=== PATIENT | female | born 1965 | race Caucasian/White ===

== ENCOUNTER 2017-06-09 06:35 | Emergency (ER) | payer MEDICAID ==
[~2017-06-09] VITALS: Ht 152.4 cm; Wt 57.5 kg
[~2017-06-09 06:35] MED LIST: ALBU0.08 NEB; ALBUAER3 INH; BUTA1CAP PO; CLON0.1T PO; CYCL1TAB29 PO; DILT120T PO; DULO-39 PO; GABA600T PO; IBUP800T23 PO; MONT10TA2 PO
[2017-06-09] MEDS ORDERED: SODIUM CHLORIDE 0.9% FLUSH 10 ML FLUSH IVF PRN (06:45)
[2017-06-09] MEDS ORDERED: methylPREDNISolone SOD SUCC 125 MG/2 ML VIAL IVP ONE (06:45)
--- NOTE | 2017-06-09 06:45 | PD ---
HPI Chief Complaint: shortness of breath Time Seen by Provider: 06:40 Travel History International Travel<30 days: No Contact w/Intl Traveler<30days: No Traveled to known affect area: No History of Present Illness HPI 51-year-old female presents to the emergency department by private transportation for complaint of 4 hours of progressively worsening shortness of breath. Patient has history of COPD and uses supplemental oxygen. Patient is out of medications. In has not recently been on steroid. Patient does not have productive cough for complaint of fever. Patient is a cigarette smoker. Patient reports she took none of her medications prior to arrival to the ED. PFSH Past Medical History Narrative Medical Sciatica Asthma COPD depression hypertension tobaccoism hysterectomy; nursing notes reviewed Asthma: Yes Anxiety: No Depression: Yes Cancer: No Cardiovascular Problems: Yes (HTN) COPD: Yes Diabetes: No Diminished Hearing: No Endocrine: No Genitourinary: No Hypertension: Yes Immune Disorder: No Musculoskeletal: Yes (SCIATICA) Neurologic: No Psychiatric: No Reproductive: No Respiratory: Yes (COPD; ASTHMA) Immunizations Current: No : 11 Para: 1 Tubal Ligation: Yes Past Surgical History Section: Yes Cholecystectomy: Yes Gynecologic Surgery: Yes (, HYSTERECTOMY) Hysterectomy: Yes Other Surgery: Yes Social History Alcohol Use: No Tobacco Use: Yes (1.5 PPD) Substance Use: No Allergies-Medications (Allergen,Severity, Reaction): Coded Allergies: Aspirin (Verified Allergy, Severe, Shortness of Breath, 06/09/17) Reported Meds & Prescriptions Reported Meds & Active Scripts Active Proair Hfa 8.5 GM Inh (Albuterol Sulfate) 90 Mcg/Act Aer 2 Puff INH Q6H PRN 108 mcg/actuation Albuterol Neb (Albuterol Sulfate) 2.5 Mg/3 Ml Neb 2.5 Mg NEB Q4HR NEB PRN Duloxetine DR (Duloxetine HCl) 40 Mg Capdr 40 Mg PO DAILY Gabapentin 600 Mg Tab 600 Mg PO TID Ibuprofen 800 Mg Tab 800 Mg PO Q6HR PRN Clonidine (Clonidine HCl) 0.1 Mg Tab 0.1 Mg PO DAILY Singulair (Montelukast Sodium) 10 Mg Tab 10 Mg PO DAILY Flexeril (Cyclobenzaprine HCl) 10 Mg Tab 10 Mg PO Q8HR PRN Fioricet (Mpzhgenyyq-Dyhjqedrqlqbw-Hmcvdigc) 50-300-40 Mg Cap 1 Cap PO Q4H PRN Reported Diltiazem (Diltiazem HCl) 120 Mg Tab 120 Mg PO BID Review of Systems Except as stated in HPI: all other systems reviewed are Neg Physical Exam Narrative GENERAL: Well-developed well-nourished female in obvious respiratory distress speaking 1 word or short phrase sentences. SKIN: Warm and dry. HEAD: Normocephalic. EYES: No scleral icterus. No injection or drainage. NECK: Supple, trachea midline. No JVD or lymphadenopathy. CARDIOVASCULAR: Increased Regular rate and rhythm without murmurs, gallops, or rubs. RESPIRATORY: Breath sounds equal bilaterally diminished with diffuse expiratory wheeze. No accessory muscle use. GASTROINTESTINAL: Abdomen soft, non-tender, nondistended. MUSCULOSKELETAL: No cyanosis, or edema. BACK: Nontender without obvious deformity. No CVA tenderness. Data Data Last Documented VS Vital Signs Date Time Temp Pulse Resp B/P Pulse Ox O2 Delivery O2 Flow Rate FiO2 06/09/17 06:47 98.3 100 20 238/134 93 Orders Complete Blood Count With Diff (06/09/17 06:37) Basic Metabolic Panel (Bmp) (06/09/17 06:37) B-Type Natriuretic Peptide (06/09/17 06:37) Magnesium (Mg) (06/09/17 06:37) Troponin I (06/09/17 06:37) Iv Access Insert/Monitor (06/09/17 06:37) Electrocardiogram (06/09/17 06:37) Ecg Monitoring (06/09/17 06:37) Oximetry (06/09/17 06:37) Oxygen Administration (06/09/17 06:37) Chest, Single Ap (06/09/17 06:37) Sodium Chloride 0.9% Flush (Ns Flush) (06/09/17 06:45) Methylprednisolone So Succ Inj (Solumedr (06/09/17 06:45) Albuterol-Ipratropium Neb (Duoneb Neb) (06/09/17 06:45) Clonidine (Catapres) (06/09/17 07:00) MDM Medical Decision Making Medical Screen Exam Complete: Yes Emergency Medical Condition: Yes Medical Record Reviewed: Yes Interpretation(s) cxr: hyperinflation c/w copd; no lobar infiltrate, no cardiomegaly, no pneumothorax Differential Diagnosis Exacerbation COPD, bronchitis, pneumonia, ACS, CHF, accelerated hypertension, PE Narrative Course 51-year-old female presents with exacerbation of COPD with tight diffuse expiratory wheezing and diminished breath sounds; [facility] 3 Solu-Medrol 125 mg administered IV times one dose chest x-ray EKG and blood work ordered patient maintained on supplemental oxygen. Care signed over to onccat CUELLO, Dr. Garza, for follow up of CT and disposition Diagnosis Primary Impression: COPD exacerbation Additional Impression: HTN (hypertension) Admitting Information Admitting Physician Requests: Admit Ysabel Aamnda MD Jun 09, 2017 06:45 Ysabel Amanda MD Jun 09, 2017 06:45
[2017-06-09] MEDS: RESP: ALBUTEROL 2.5 MG/IPRATROPIUM 0.5 MG NEB (SCH) INH ×2 (06:46→06:47)
[2017-06-09 06:47] VITALS: BP 238/134; PULSE 100; RESP 20; TEMP 98.3; O2SAT 93
--- NOTE | 2017-06-09 06:52 | RADRPT ---
EXAM DATE/TIME: 06/09/2017 06:46 [facility] COMPARISON: CHEST SINGLE AP, July 19, 2016, 11:47. INDICATIONS : Shortness of breath MEDICAL HISTORY : Hypertension. Chronic obstructive pulmonary disease. SURGICAL HISTORY : None. ENCOUNTER: Initial ACUITY: 1 day PAIN SCORE: 0/10 LOCATION: Bilateral chest FINDINGS: Single AP view of the chest. The lungs are clear. Cardiomediastinal silhouette within normal limits. No evidence of pleural effusion or pneumothorax. CONCLUSION: No acute cardiopulmonary disease identified. Aj Miller MD on June 09, 2017 at 6:50 Board Certified Radiologist. This report was verified electronically.
[2017-06-09] MEDS ORDERED: cloNIDine HCL 0.2 MG TAB PO ONE (07:00)
[2017-06-09 07:09] VITALS: BP 185/104; PULSE 90; RESP 20; O2SAT 97
[2017-06-09 07:12] LABS: CHLORIDE 106 MEQ/L (98-107); POTASSIUM 4.1 MEQ/L (3.5-5.1); SODIUM (NA) 140 MEQ/L (136-145)
[2017-06-09 07:15] LABS: ANION GAP 6 MEQ/L (5-15); BICARBONATE 28.1 MEQ/L (21.0-32.0); BLOOD UREA NITROGEN 14 MG/DL (7-18)
[2017-06-09 07:17] LABS: AUTOMATED NEUTROPHIL # 5.8 TH/MM3 (1.8-7.7); BASOPHIL # 0.1 TH/MM3 (0-0.2); BASOPHIL % 0.6 % (0.0-2.0); EOSINOPHIL # 0.3 TH/MM3 (0-0.4); EOSINOPHIL % 2.6 % (0.0-4.0); HEMATOCRIT 50.1 % (35.0-46.0); HEMO FLAGS DIFF FINAL; MEAN CELL VOLUME 89.2 FL (80.0-100.0); MEAN CORPUSCULAR HEMOGLOBIN 29.4 PG (27.0-34.0); MONO % 6.9 % (0.0-8.0); NEUT % 59.9 % (16.0-70.0); PLATELET COUNT 311 TH/MM3 (150-450); RED BLOOD COUNT 5.62 MIL/MM3 (4.00-5.30); RED CELL DISTRIBUTION WIDTH 13.2 % (11.6-17.2); WHITE BLOOD COUNT 9.9 TH/MM3 (4.0-11.0)
[2017-06-09 07:18] LABS: GLOMERULAR FILTRATION RATE 76 ML/MIN (>89)
[2017-06-09 07:35] VITALS: BP 144/89; PULSE 88; RESP 18; O2SAT 99
--- NOTE | 2017-06-09 07:51 | EKG ---
Date Performed: 06/09/2017 Time Performed: 07:16:09 PTAGE: 51 years EKG: Sinus rhythm WITH SINUS ARRHYTHMIA NONSPECIFIC T-WAVE ABNORMALITY BORDERLINE ECG Compared to prior electrocardiog jeyson, Rate has slowed and T-wave changes are present. PREVIOUS TRACING : 01/04/2016 03.54 DOCTOR: Jesus Ang Interpretating Date/Time 06/09/2017 07:50:19
[2017-06-09 08:19] VITALS: BP 116/91; PULSE 90; RESP 18; O2SAT 96
[2017-06-09] MEDS ORDERED: ALBU0.08 NEB (08:32)
[2017-06-09] MEDS ORDERED: IPRA0.02 NEB (08:32)
[2017-06-09] MEDS ORDERED: ALBUAER3 INH (08:32)
[2017-06-09] MEDS ORDERED: PRED50 PO (08:32)
--- NOTE | 2017-06-09 08:33 | PD ---
Data Data Last Documented VS Vital Signs Date Time Temp Pulse Resp B/P Pulse Ox O2 Delivery O2 Flow Rate FiO2 06/09/17 08:19 90 18 116/91 96 Room Air 06/09/17 07:09 2 06/09/17 06:47 98.3 Orders Complete Blood Count With Diff (06/09/17 06:37) Basic Metabolic Panel (Bmp) (06/09/17 06:37) B-Type Natriuretic Peptide (06/09/17 06:37) Magnesium (Mg) (06/09/17 06:37) Troponin I (06/09/17 06:37) Iv Access Insert/Monitor (06/09/17 06:37) Electrocardiogram (06/09/17 06:37) Ecg Monitoring (06/09/17 06:37) Oximetry (06/09/17 06:37) Oxygen Administration (06/09/17 06:37) Chest, Single Ap (06/09/17 06:37) Sodium Chloride 0.9% Flush (Ns Flush) (06/09/17 06:45) Methylprednisolone So Succ Inj (Solumedr (06/09/17 06:45) Albuterol-Ipratropium Neb (Duoneb Neb) (06/09/17 06:45) Clonidine (Catapres) (06/09/17 07:00) Labs Laboratory Tests Test 06/09/17 06:50 White Blood Count 9.9 TH/MM3 Red Blood Count 5.62 MIL/MM3 Hemoglobin 16.5 GM/DL Hematocrit 50.1 % Mean Corpuscular Volume 89.2 FL Mean Corpuscular Hemoglobin 29.4 PG Mean Corpuscular Hemoglobin 33.0 % Concent Red Cell Distribution Width 13.2 % Platelet Count 311 TH/MM3 Mean Platelet Volume 8.8 FL Neutrophils (%) (Auto) 59.9 % Lymphocytes (%) (Auto) 30.0 % Monocytes (%) (Auto) 6.9 % Eosinophils (%) (Auto) 2.6 % Basophils (%) (Auto) 0.6 % Neutrophils # (Auto) 5.8 TH/MM3 Lymphocytes # (Auto) 3.0 TH/MM3 Monocytes # (Auto) 0.7 TH/MM3 Eosinophils # (Auto) 0.3 TH/MM3 Basophils # (Auto) 0.1 TH/MM3 CBC Comment DIFF FINAL Differential Comment Sodium Level 140 MEQ/L Potassium Level 4.1 MEQ/L Chloride Level 106 MEQ/L Carbon Dioxide Level 28.1 MEQ/L Anion Gap 6 MEQ/L Blood Urea Nitrogen 14 MG/DL Creatinine 0.80 MG/DL Estimat Glomerular Filtration 76 ML/MIN Rate Random Glucose 102 MG/DL Calcium Level 9.3 MG/DL Magnesium Level 2.0 MG/DL Troponin I LESS THAN 0.02 NG/ML B-Type Natriuretic Peptide 10 PG/ML [facility] Supervised Visit with DARRELL: No Narrative Course This case is checked out to me by Dr. Amanda at 7 AM. I reviewed the entirety of the workup with the patient. Her labs are normal and her chest x-ray is normal. After nebulizers she is breathing much better. Lungs are clear and saturations are 98% on room air. I have refilled her albuterol nebulizer and inhaler. I discussed the importance of Atrovent COPD therapy and prescribed a nebulizer of Atrovent. I wrote her 5 days of prednisone and reiterated she should stop smoking. Stable for outpatient follow-up Diagnosis Primary Impression: COPD exacerbation Additional Impression: Tobacco abuse Additional Instruction: The patient was advised to follow up with their physician and return if they worsen. Stop smoking Med/Other Pt SpecificInfo: Prescription(s) given Scripts Prednisone 50 Mg Tab50 Mg PO DAILY #5 TAB Ref 0 Prov:Lorenzo Garza MD 06/09/17 Ipratropium Neb 0.5 Mg/2.5 Ml Amp0.5 Mg NEB Q12HR NEB #60 NEBULE Ref 0 Prov:Lorenzo Garza MD 06/09/17 Albuterol 8.5 GM Inh (Proair Hfa 8.5 GM Inh)90 Mcg/Act Aer2 Puff INH Q6H PRN ( SHORTNESS OF BREATH) #1 INHALER Ref 0 108 mcg/actuation Prov:Lorenzo Garza MD 06/09/17 Albuterol Neb 2.5 Mg/3 Ml Neb2.5 Mg NEB Q4HR NEB PRN (SHORTNESS OF BREATH) #60 NEBULE Ref 0 Prov:Lorenzo Garza MD 06/09/17 Disposition: 01 DISCHARGE HOME Condition: Stable Lorenzo Garza MD Jun 09, 2017 08:33
== END 2017-06-09 08:52 | disposition home or self-care (01) ==
LOC: PHED 06:35
DX: J44.1 Chronic obstructive pulmonary disease with (acute) exacerbation (principal); I10 Essential (primary) hypertension; R94.31 Abnormal electrocardiogram [ECG] [EKG]; F17.200 Nicotine dependence, unspecified, uncomplicated; Z99.81 Dependence on supplemental oxygen; Z79.899 Other long term (current) drug therapy; Z87.09 Personal history of other diseases of the respiratory system; Z87.39 Personal history of other diseases of the musculoskeletal system and connective tissue; Z86.59 Personal history of other mental and behavioral disorders
CPT/HCPCS: 71010; 80048; 83735; 83880; 84484; 85025; 93005; 94640; 94664; 96374; 99285; J2930

== ENCOUNTER 2017-06-16 09:40 | Emergency (ER) | payer MEDICAID ==
[~2017-06-16] VITALS: Ht 152.4 cm; Wt 61.0 kg
[~2017-06-16 09:40] MED LIST changes: -CYCL1TAB29 PO; -IBUP800T23 PO; +IPRA0.02 NEB; +PRED50 PO
[2017-06-16 09:45] VITALS: BP 188/128; PULSE 113; RESP 22; TEMP 97.9; O2SAT 98
[2017-06-16 09:50] VITALS: RESP 22; O2SAT 98
[2017-06-16] MEDS ORDERED: SODIUM CHLORIDE 0.9% FLUSH 10 ML FLUSH IVF PRN (10:00)
[2017-06-16] MEDS ORDERED: methylPREDNISolone SOD SUCC 125 MG/2 ML VIAL IVP ONE (10:00)
--- NOTE | 2017-06-16 10:01 | PD ---
HPI Chief Complaint: Respiratory Symptoms Time Seen by Provider: 09:48 Travel History International Travel<30 days: No Contact w/Intl Traveler<30days: No Traveled to known affect area: No History of Present Illness HPI The patient was seen and examined in the presence of the nurse. This patient complains of shortness of breath. Symptoms are severe. Duration 2 days. She tried a nebulizer at home without relief. No alleviating factors. She continues to smoke a pack a day. Not having chest pain or fever or cough. She is actively wheezing and difficult to speak full sentences. She has oxygen dependent COPD. PFSH Past Medical History Asthma: Yes Anxiety: No Depression: Yes Cancer: No Cardiovascular Problems: Yes (HTN) COPD: Yes Diabetes: No Diminished Hearing: No Endocrine: No Genitourinary: No Hypertension: Yes Immune Disorder: No Musculoskeletal: Yes (SCIATICA) Neurologic: No Psychiatric: No Reproductive: No Respiratory: Yes (COPD; ASTHMA) Immunizations Current: No : 11 Para: 1 Tubal Ligation: Yes Past Surgical History Section: Yes Cholecystectomy: Yes Gynecologic Surgery: Yes (, HYSTERECTOMY) Hysterectomy: Yes Other Surgery: Yes Social History Alcohol Use: No Tobacco Use: Yes (1 PPD) Substance Use: No Allergies-Medications (Allergen,Severity, Reaction): Coded Allergies: Aspirin (Verified Allergy, Severe, Shortness of Breath, 06/16/17) Reported Meds & Prescriptions Reported Meds & Active Scripts Active Ipratropium Neb (Ipratropium [place]) 0.5 Mg/2.5 Ml Amp 0.5 Mg NEB Q12HR NEB Proair Hfa 8.5 GM Inh (Albuterol Sulfate) 90 Mcg/Act Aer 2 Puff INH Q6H PRN 108 mcg/actuation Albuterol Neb (Albuterol Sulfate) 2.5 Mg/3 Ml Neb 2.5 Mg NEB Q4HR NEB PRN Gabapentin 600 Mg Tab 600 Mg PO TID Clonidine (Clonidine HCl) 0.1 Mg Tab 0.1 Mg PO DAILY Singulair (Montelukast Sodium) 10 Mg Tab 10 Mg PO DAILY Fioricet (Njdsbdtudz-Dpaoyprmvjgds-Isuovfml) 50-300-40 Mg Cap 1 Cap PO Q4H PRN Reported Diltiazem (Diltiazem HCl) 120 Mg Tab 120 Mg PO BID Review of Systems General / Constitutional: No: Fever Eyes: No: Visual changes HENT: No: Headaches Cardiovascular: No: Chest Pain or Discomfort Respiratory: Positive: Shortness of Breath, Wheezing Gastrointestinal: No: Abdominal Pain Genitourinary: No: Dysuria Musculoskeletal: No: Pain Skin: No Rash Neurologic: No: Weakness Psychiatric: No: Depression Endocrine: No: Polydipsia Hematologic/Lymphatic: No: Easy Bruising Physical Exam Narrative GENERAL: Well-nourished, well-developed patient in respiratory distress. SKIN: Focused skin assessment reveals no rash and nodules. Skin is Warm and dry. HEAD: Atraumatic. Normocephalic. EYES: Pupils equal and round. No scleral icterus. No injection or drainage. ENT: No nasal bleeding or discharge. Mucous membranes pink and moist. NECK: Trachea midline. No JVD. CARDIOVASCULAR: Regular rate and rhythm. No murmur appreciated. RESPIRATORY: Positive accessory muscle use. Diffuse expiratory wheezing noted. Breath sounds equal bilaterally. GASTROINTESTINAL: Abdomen soft, non-tender, nondistended. Hepatic and splenic margins not palpable. MUSCULOSKELETAL: No obvious deformities. No clubbing. No cyanosis. No edema. NEUROLOGICAL: Awake and alert. No obvious cranial nerve deficits. Motor grossly within normal limits. Normal speech. PSYCHIATRIC: Appropriate mood and affect; insight and judgment poor . Data Data Last Documented VS Vital Signs Date Time Temp Pulse Resp B/P Pulse Ox O2 Delivery O2 Flow Rate FiO2 06/16/17 11:00 18 98 Room Air 06/16/17 10:50 90 115/81 06/16/17 10:25 3 06/16/17 10:25 97.8 Orders Complete Blood Count With Diff (06/16/17 09:55) Basic Metabolic Panel (Bmp) (06/16/17 09:55) Iv Access Insert/Monitor (06/16/17 09:55) Electrocardiogram (06/16/17 09:55) Ecg Monitoring (06/16/17 09:55) Oximetry (06/16/17 09:55) Oxygen Administration (06/16/17 09:55) Chest, Single Ap (06/16/17 09:55) Sodium Chloride 0.9% Flush (Ns Flush) (06/16/17 10:00) Methylprednisolone So Succ Inj (Solumedr (06/16/17 10:00) Albuterol-Ipratropium Neb (Duoneb Neb) (06/16/17 10:00) Clonidine (Catapres) (06/16/17 10:15) Labs Laboratory Tests Test 06/16/17 09:50 White Blood Count 14.5 TH/MM3 Red Blood Count 5.47 MIL/MM3 Hemoglobin 16.5 GM/DL Hematocrit 48.2 % Mean Corpuscular Volume 88.2 FL Mean Corpuscular Hemoglobin 30.2 PG Mean Corpuscular Hemoglobin 34.2 % Concent Red Cell Distribution Width 13.1 % Platelet Count 323 TH/MM3 Mean Platelet Volume 8.7 FL Neutrophils (%) (Auto) 63.6 % Lymphocytes (%) (Auto) 28.7 % Monocytes (%) (Auto) 5.7 % Eosinophils (%) (Auto) 1.6 % Basophils (%) (Auto) 0.4 % Neutrophils # (Auto) 9.2 TH/MM3 Lymphocytes # (Auto) 4.2 TH/MM3 Monocytes # (Auto) 0.8 TH/MM3 Eosinophils # (Auto) 0.2 TH/MM3 Basophils # (Auto) 0.1 TH/MM3 CBC Comment DIFF FINAL Differential Comment Sodium Level 139 MEQ/L Potassium Level 3.1 MEQ/L Chloride Level 105 MEQ/L Carbon Dioxide Level 29.1 MEQ/L Anion Gap 5 MEQ/L Blood Urea Nitrogen 13 MG/DL Creatinine 0.77 MG/DL Estimat Glomerular Filtration 79 ML/MIN Rate Random Glucose 96 MG/DL Calcium Level 8.9 MG/DL MDM Medical Decision Making Medical Screen Exam Complete: Yes Emergency Medical Condition: Yes Medical Record Reviewed: Yes Differential Diagnosis Differential diagnosis includes COPD, asthma, pneumonia, bronchitis, CHF Narrative Course I have reviewed the patient's electronic medical record. I Saw this patient one week ago for COPD exacerbation Patient arrives critically ill with prominent resp distress IV placed Gave her series of 3 nebulizer treatments and IV Solu-Medrol Placed her on oxygen and monitoring I reviewed her EKG which shows sinus rhythm but no ST elevation or ectopy Extended cardiac monitoring reveals sinus rhythm without ectopy I reviewed her chest x-ray which is normal CBC shows nonspecific leukocytosis of 15,000 Metabolic profile shows hypokalemia of 3.1 This patient had a remarkable turnaround After all the above therapies she improved significantly and says she feels well enough that she thinks she can go home She does not want to stay in the hospital Saturations are running mid 90s on her cannula She still wheezes but much better I wrote her 5 days of prednisone and she has both oxygen and nebulizers at home We reiterated she really needs to quit smoking or this will become a frequent event I gave her potassium replacement dose Critical Care Narrative Aggregate critical care time was 33 minutes. Time to perform other separately billable procedures was not included in the critical care time. My time did not include minutes spent treating any other patients simultaneously or on activities that did not directly contribute to the patient's treatment. The services I provided to this patient were to treat and/or prevent clinically significant deterioration that could result in: Cardiopulmonary arrest, cardiac arrhythmia, respiratory failure I provided critical care services requiring my management, as noted below: Chart data review, documentation time, medication orders and management, vital sign assessments/reviewing monitor data, ordering and reviewing lab tests, ordering and interpreting/reviewing x-rays and diagnostic studies, care of the patient and discussion of the patient with the admitting physicians. Diagnosis Primary Impression: COPD exacerbation Additional Impressions: Hypokalemia Tobacco abuse Additional Instructions: The patient was advised to follow up with their physician and return if they worsen. Stop smoking Med/Other Pt SpecificInfo: Prescription(s) given Scripts Prednisone 20 Mg Tab40 Mg PO DAILY #10 TAB Ref 0 Take 40 mg (2 tablets) daily for 5 days Prov:Lorenzo Garza MD 06/16/17 Disposition: 01 DISCHARGE HOME Condition: Stable Lorenzo Garza MD Jun 16, 2017 10:01
[2017-06-16] MEDS: RESP: ALBUTEROL 2.5 MG/IPRATROPIUM 0.5 MG NEB (SCH) INH (10:07)
[2017-06-16] MEDS ORDERED: cloNIDine HCL 0.2 MG TAB PO ONE (10:15)
[2017-06-16 10:19] LABS: AUTOMATED NEUTROPHIL # 9.2 TH/MM3 (1.8-7.7); BASOPHIL # 0.1 TH/MM3 (0-0.2); BASOPHIL % 0.4 % (0.0-2.0); EOSINOPHIL # 0.2 TH/MM3 (0-0.4); EOSINOPHIL % 1.6 % (0.0-4.0); HEMATOCRIT 48.2 % (35.0-46.0); HEMO FLAGS DIFF FINAL; LYMPH % 28.7 % (9.0-44.0); LYMPHOCYTE # 4.2 TH/MM3 (1.0-4.8); MEAN CELL VOLUME 88.2 FL (80.0-100.0); MEAN CORPUSCULAR HEMOGLOBIN 30.2 PG (27.0-34.0); MEAN CORPUSCULAR HGB CONC 34.2 % (32.0-36.0); MONO % 5.7 % (0.0-8.0); NEUT % 63.6 % (16.0-70.0); PLATELET COUNT 323 TH/MM3 (150-450); RED BLOOD COUNT 5.47 MIL/MM3 (4.00-5.30); RED CELL DISTRIBUTION WIDTH 13.1 % (11.6-17.2); WHITE BLOOD COUNT 14.5 TH/MM3 (4.0-11.0)
[2017-06-16 10:21] LABS: POTASSIUM 3.1 MEQ/L (3.5-5.1)
[2017-06-16 10:24] LABS: BICARBONATE 29.1 MEQ/L (21.0-32.0)
[2017-06-16 10:25] VITALS: BP 170/100; PULSE 92; RESP 20; TEMP 97.8; O2SAT 100
--- NOTE | 2017-06-16 10:33 | RADRPT ---
EXAM DATE/TIME: 06/16/2017 10:04 [facility] COMPARISON: CHEST SINGLE AP, June 09, 2017, 6:46. INDICATIONS : Short of breath MEDICAL HISTORY : Asthma SURGICAL HISTORY : None. ENCOUNTER: Initial ACUITY: 1 day PAIN SCORE: 2/10 LOCATION: Bilateral chest FINDINGS: A single view of the chest demonstrates the lungs to be symmetrically aerated without evidence of mas s, infiltrate or effusion. The cardiomediastinal contours are unremarkable. Osseous structures are intact. CONCLUSION: No acute disease. Mio Fung MD FACR on June 16, 2017 at 10:31 Board Certified Radiologist. This report was verified electronically.
[2017-06-16 10:50] VITALS: BP 115/81; PULSE 90; RESP 18; O2SAT 98
[2017-06-16 11:00] VITALS: RESP 18; O2SAT 98
[2017-06-16] MEDS ORDERED: PRED20 PO (11:24)
[2017-06-16] MEDS ORDERED: POTASSIUM CHLORIDE 25 MEQ EFFERVESCENT TAB PO ONE (11:30)
--- NOTE | 2017-06-17 13:34 | EKG ---
Date Performed: 06/16/2017 Time Performed: 09:52:19 PTAGE: 52 years EKG: SINUS TACHYCARDIA POSSIBLE RIGHT ATRIAL ENLARGEMENT MODERATE ST DEPRESSION ABNORMAL ECG PREVIOUS TRACING 06/09/2017 07.16.09 Since previous tracing, no significant change noted DOCTOR: Liliya Peña Interpretating Date/Time 06/17/2017 13:33:55
== END 2017-06-16 11:45 | disposition home or self-care (01) ==
LOC: PHED 09:40
DX: J44.1 Chronic obstructive pulmonary disease with (acute) exacerbation (principal); E87.6 Hypokalemia; F17.200 Nicotine dependence, unspecified, uncomplicated; R94.31 Abnormal electrocardiogram [ECG] [EKG]; I10 Essential (primary) hypertension; Z99.81 Dependence on supplemental oxygen; Z87.09 Personal history of other diseases of the respiratory system; Z86.59 Personal history of other mental and behavioral disorders; Z86.79 Personal history of other diseases of the circulatory system; Z87.39 Personal history of other diseases of the musculoskeletal system and connective tissue
CPT/HCPCS: 71010; 80048; 85025; 93005; 94640; 94664; 96374; 99291; J2930

== ENCOUNTER 2017-09-06 10:46 | Emergency (ER) | payer MEDICAID ==
[~2017-09-06] VITALS: Ht 152.4 cm; Wt 57.0 kg
[~2017-09-06 10:46] MED LIST changes: -DULO-39 PO; +PRED20 PO; -PRED50 PO
[2017-09-06 10:54] VITALS: BP 156/99; PULSE 139; RESP 16; TEMP 98.8; O2SAT 99
[2017-09-06] MEDS ORDERED: OMEP20TA PO ×2 (11:21→12:28)
[2017-09-06] MEDS ORDERED: DULO-39 PO ×2 (11:21→12:28)
[2017-09-06] MEDS ORDERED: cloNIDine HCL 0.1 MG TAB PO ONE (11:30)
[2017-09-06] MEDS ORDERED: ACETAMINOPHEN 325 MG TAB PO ONE (11:30)
--- NOTE | 2017-09-06 11:30 | PD ---
HPI Chief Complaint: Hypertension Time Seen by Provider: 11:19 Travel History International Travel<30 days: No Contact w/Intl Traveler<30days: No Traveled to known affect area: No History of Present Illness HPI This 52-year-old female is complaining of general malaise. She has had fever and sore throat for a couple of days. She says she has pain all over area she has had a slight cough. She does have a history of asthma. She has a history of hypertension and has been on medication for it in the past but has been out of all her medicine for the past month. She went to new doctor today who told her to come here because of blood pressure was elevated. She had a mild cough. She has not been short of breath. He says she's been having fevers and chills PFSH Past Medical History Asthma: Yes Anxiety: No Depression: Yes Cancer: No Cardiovascular Problems: Yes COPD: Yes Diabetes: No Diminished Hearing: No Endocrine: No Genitourinary: No Hypertension: Yes Immune Disorder: No Musculoskeletal: Yes (SCIATICA) Neurologic: No Psychiatric: No Reproductive: No Respiratory: Yes (COPD) Immunizations Current: No ?: Not : 11 Para: 1 Tubal Ligation: Yes Past Surgical History Section: Yes Cholecystectomy: Yes Gynecologic Surgery: Yes (, HYSTERECTOMY) Hysterectomy: Yes Other Surgery: Yes Social History Alcohol Use: No Tobacco Use: Yes (1 PPD) Substance Use: No Allergies-Medications (Allergen,Severity, Reaction): Coded Allergies: aspirin (Unverified Allergy, Severe, Shortness of Breath, 09/06/17) Reported Meds & Prescriptions Reported Meds & Active Scripts Active Ipratropium Neb (Ipratropium [place]) 0.5 Mg/2.5 Ml Amp 0.5 Mg NEB Q12HR NEB Proair Hfa 8.5 GM Inh (Albuterol Sulfate) 90 Mcg/Act Aer 2 Puff INH Q6H PRN 108 mcg/actuation Albuterol Neb (Albuterol Sulfate) 2.5 Mg/3 Ml Neb 2.5 Mg NEB Q4HR NEB PRN Gabapentin 600 Mg Tab 600 Mg PO TID Clonidine (Clonidine HCl) 0.1 Mg Tab 0.1 Mg PO DAILY Singulair (Montelukast Sodium) 10 Mg Tab 10 Mg PO DAILY Fioricet (Ebqkfmegfw-Avtgjitybkjri-Vcqhqbul) 50-300-40 Mg Cap 1 Cap PO Q4H PRN Reported Omeprazole 20 Mg Tab 20 Mg PO DAILY Duloxetine DR (Duloxetine HCl) 40 Mg Capdr 40 Mg PO DAILY Diltiazem (Diltiazem HCl) 120 Mg Tab 120 Mg PO BID Review of Systems General / Constitutional: Positive: Fever, Chills Eyes: No: Diploplia, Blurred Vision HENT: Positive: Sore Throat, No: Headaches Cardiovascular: No: Chest Pain or Discomfort Respiratory: Positive: Cough Gastrointestinal: No: Nausea, Vomiting Genitourinary: No: Urgency, Frequency Neurologic: No: Weakness Hematologic/Lymphatic: No: Easy Bruising Physical Exam Narrative GENERAL: Well-developed female SKIN: Focused skin assessment warm/dry. HEAD: Atraumatic. Normocephalic. EYES: Pupils equal and round. No scleral icterus. No injection or drainage. ENT: No nasal bleeding or discharge. Mucous membranes pink and moist. TMs are negative NECK: Trachea midline. No JVD. CARDIOVASCULAR: Regular rate and rhythm. No murmur appreciated. RESPIRATORY: No accessory muscle use. Clear to auscultation. Breath sounds equal bilaterally. GASTROINTESTINAL: Abdomen soft, non-tender, nondistended. Hepatic and splenic margins not palpable. MUSCULOSKELETAL: No obvious deformities. No clubbing. No cyanosis. No edema. NEUROLOGICAL: Awake and alert. No obvious cranial nerve deficits. Motor grossly within normal limits. Normal speech. PSYCHIATRIC: Appropriate mood and affect; insight and judgment normal. Data Data Last Documented VS Vital Signs Date Time Temp Pulse Resp B/P (MAP) Pulse Ox O2 Delivery O2 Flow Rate FiO2 09/06/17 11:47 117 15 166/122 (137) 100 09/06/17 10:54 98.8 Orders Orders Influenzae A/B Antigen (09/06/17 11:26) Clonidine (Catapres) (09/06/17 11:30) Acetaminophen (Tylenol) (09/06/17 11:30) MDM Medical Decision Making Medical Screen Exam Complete: Yes Emergency Medical Condition: Yes Medical Record Reviewed: Yes Differential Diagnosis Differential includes URI, influenza, hypertension Narrative Course Tests for influenza is negative. Impression is viral URI. I will renew the patient's medications as she is out of everything was unable to see her doctor today Diagnosis Primary Impression: Upper respiratory infection Scripts Omeprazole (Omeprazole) 20 Mg Tab 20 MG PO DAILY, #30 TAB 0 Refills Prov: Og Rader MD 09/06/[address] (Duloxetine DR) 40 Mg Capdr 40 MG PO DAILY, #30 CAP 0 Refills Prov: Og Rader MD 09/06/17 Ipratropium Neb (Ipratropium Neb) 0.5 Mg/2.5 Ml Amp 0.5 MG NEB Q12HR NEB for Breathing Treatment, #60 NEBULE 0 Refills Prov: Og Rader MD 09/06/17 Albuterol 8.5 GM Inh (Proair Hfa 8.5 GM Inh) 90 Mcg/Act Aer 2 PUFF INH Q6H Y for SHORTNESS OF BREATH, #1 INHALER 0 Refills 108 mcg/actuation Prov: Og Rader MD 09/06/17 Albuterol Neb (Albuterol Neb) 2.5 Mg/3 Ml Neb 2.5 MG NEB Q4HR NEB Y for SHORTNESS OF BREATH, #60 NEBULE 0 Refills Prov: Og Rader MD 09/06/17 Gabapentin (Gabapentin) 600 Mg Tab 600 MG PO TID, #90 TAB 0 Refills Prov: Og Rader MD 09/06/17 Clonidine (Clonidine) 0.1 Mg Tab 0.1 MG PO DAILY for Blood Pressure Management, #60 TAB 0 Refills Prov: Og Rader MD 09/06/17 Montelukast (Singulair) 10 Mg Tab 10 MG PO DAILY, #30 TAB 0 Refills Prov: Og Rader MD 09/06/17 Fhwbnoaahw-Knwdqvrwkxbfh-Rpbsejxe (Fioricet) 50-300-40 Mg Cap 1 CAP PO Q4H Y for HEADACHE, #12 CAP 0 Refills Prov: Og Rader MD 09/06/17 Diltiazem (Diltiazem) 120 Mg Tab 120 MG PO BID for Angina, #120 TAB 0 Refills Prov: Og Rader MD 09/06/17 Disposition: 01 DISCHARGE HOME Condition: Stable Og Rader MD Sep 06, 2017 11:30
[2017-09-06 11:47] VITALS: BP 166/122; PULSE 117; RESP 15; O2SAT 100
[2017-09-06] MEDS ORDERED: DILT120T PO (12:28)
[2017-09-06] MEDS ORDERED: ALBUAER3 INH (12:28)
[2017-09-06] MEDS ORDERED: MONT10TA2 PO (12:28)
[2017-09-06] MEDS ORDERED: BUTA1CAP PO (12:28)
[2017-09-06] MEDS ORDERED: CLON0.1T PO (12:28)
[2017-09-06] MEDS ORDERED: ALBU0.08 NEB (12:28)
[2017-09-06] MEDS ORDERED: GABA600T PO (12:28)
[2017-09-06] MEDS ORDERED: IPRA0.02 NEB (12:28)
[2017-09-06 13:09] VITALS: BP 131/86
[2017-09-08] MEDS ORDERED: PRED20 PO (21:01)
[2017-09-08] MEDS ORDERED: AZIT250T3 PO (21:01)
[2017-09-14] MEDS ORDERED: NEBULIZER1 MI1 (10:22)
[2017-09-15] MEDS ORDERED: MEDR4PAK PO (10:28)
[2017-09-15] MEDS ORDERED: BENZ100 PO (10:28)
[2017-09-15] MEDS ORDERED: DILT120T PO (10:28)
[2017-09-15] MEDS ORDERED: CLON0.1T PO (10:28)
[2017-09-15] MEDS ORDERED: LEVA750T9 PO (10:28)
[2017-09-15] MEDS ORDERED: ALBUAER3 INH (10:28)
[2017-09-15] MEDS ORDERED: ALBU0.08 NEB (10:28)
== END 2017-09-06 13:12 | disposition home or self-care (01) ==
LOC: PHED 10:46
DX: J06.9 Acute upper respiratory infection, unspecified (principal); J02.9 Acute pharyngitis, unspecified; I10 Essential (primary) hypertension; R03.0 Elevated blood-pressure reading, without diagnosis of hypertension; R05 Cough; J44.9 Chronic obstructive pulmonary disease, unspecified; Z72.0 Tobacco use
CPT/HCPCS: 87804; 99284

== ENCOUNTER 2017-10-15 18:07 | Emergency (ER) | payer MEDICAID ==
[~2017-10-15 18:07] MED LIST changes: +BENZ100 PO; -BUTA1CAP PO; -GABA600T PO; -IPRA0.02 NEB; +LEVA750T9 PO; +MEDR4PAK PO; -MONT10TA2 PO; +NEBULIZER1 MI1; -PRED20 PO
[2017-10-15 18:10] VITALS: BP 218/124; PULSE 114; RESP 22; TEMP 98; O2SAT 94
[2017-10-15] MEDS ORDERED: SODIUM CHLORIDE 0.9% FLUSH 10 ML FLUSH IVF PRN (18:15)
[2017-10-15] MEDS ORDERED: NITROGLYCERIN 2% OINT 1 GM PACKET TOPICAL ONE (18:15)
[2017-10-15] MEDS ORDERED: methylPREDNISolone SOD SUCC 125 MG/2 ML VIAL IV PUSH ONE (18:15)
[2017-10-15] MEDS: RESP: ALBUTEROL 2.5 MG/IPRATROPIUM 0.5 MG NEB (SCH) INH (18:26)
[2017-10-15 18:30] VITALS: O2SAT 97
[2017-10-15 18:37] VITALS: BP 181/102; PULSE 96; RESP 20; TEMP 98.1; O2SAT 96
[2017-10-15 18:40] LABS: AUTOMATED NEUTROPHIL # 3.7 TH/MM3 (1.8-7.7); BASOPHIL % 0.5 % (0.0-2.0); EOSINOPHIL # 0.1 TH/MM3 (0-0.4); EOSINOPHIL % 1.8 % (0.0-4.0); HEMATOCRIT 44.2 % (35.0-46.0); HEMO FLAGS DIFF FINAL; LYMPH % 24.7 % (9.0-44.0); LYMPHOCYTE # 1.4 TH/MM3 (1.0-4.8); MEAN CELL VOLUME 89.5 FL (80.0-100.0); MEAN CORPUSCULAR HEMOGLOBIN 29.1 PG (27.0-34.0); MEAN CORPUSCULAR HGB CONC 32.5 % (32.0-36.0); MONO % 10.9 % (0.0-8.0); NEUT % 62.1 % (16.0-70.0); PLATELET COUNT 263 TH/MM3 (150-450); RED BLOOD COUNT 4.94 MIL/MM3 (4.00-5.30); WHITE BLOOD COUNT 5.8 TH/MM3 (4.0-11.0)
[2017-10-15] MEDS ORDERED: MONT10TA2 PO (18:40)
--- NOTE | 2017-10-15 18:44 | RADRPT ---
EXAM DATE/TIME: 10/15/2017 18:35 [facility] COMPARISON: CHEST SINGLE AP, September 13, 2017, 14:13. INDICATIONS : Short of breath MEDICAL HISTORY : Chronic obstructive pulmonary disease. SURGICAL HISTORY : None. ENCOUNTER: Initial ACUITY: 1 day PAIN SCORE: 0/10 LOCATION: Bilateral chest FINDINGS: A single view of the chest demonstrates the lungs to be symmetrically aerated without evidence of mas s, infiltrate or effusion. The cardiomediastinal contours are unremarkable. Osseous structures are intact. CONCLUSION: 1. No acute cardiopulmonary disease. Stuart Self MD on October 15, 2017 at 18:41 Board Certified Radiologist. This report was verified electronically.
[2017-10-15 18:50] LABS: CHLORIDE 105 MEQ/L (98-107); POTASSIUM 3.5 MEQ/L (3.5-5.1); SODIUM (NA) 138 MEQ/L (136-145)
[2017-10-15 18:53] LABS: ANION GAP 6 MEQ/L (5-15); BICARBONATE 27.3 MEQ/L (21.0-32.0); BLOOD UREA NITROGEN 10 MG/DL (7-18)
[2017-10-15 18:55] LABS: INTERNATIONAL NORMALIZED RATIO 0.9 RATIO; PROTHROMBIN TIME - PATIENT 10.3 SEC (9.8-11.6)
[2017-10-15 18:56] LABS: GLOMERULAR FILTRATION RATE 93 ML/MIN (>89)
--- NOTE | 2017-10-15 19:00 | PD ---
HPI Chief Complaint: Respiratory Symptoms Time Seen by Provider: 18:13 Travel History International Travel<30 days: No Contact w/Intl Traveler<30days: No Traveled to known affect area: No History of Present Illness HPI 52-year-old female came to the emergency room with history of respiratory distress that started this morning. Patient has history of COPD and hypertension. Patient says that she was taking her inhaler but her symptoms continued to get worse. When she arrived to the triage her blood pressure was 200 over 120s. Patient says that she has history of intubation 10 years ago in [place]. She is not a smoker. She says she has been having some subjective fever in the morning. She took Tylenol this morning for that. She also has some chest tightness which is in her entire chest with no aggravating or relieving symptoms. She was tachycardic on the monitor in 120s. Patient appeared to be in moderate distress. PFSH Past Medical History Narrative Medical List of her past medical, surgical, social and family history is reviewed from the nursing note. Asthma: Yes Anxiety: No Depression: Yes Heart Rhythm Problems: Yes Cancer: No COPD: Yes Diabetes: No Diminished Hearing: No Endocrine: No GERD: Yes Genitourinary: No Hypertension: Yes Immune Disorder: No Musculoskeletal: Yes (SCIATICA) Neurologic: No Psychiatric: No Reproductive: No Respiratory: Yes (COPD) Immunizations Current: No Migraines: Yes Influenza Vaccination: Yes ?: Not : 11 Para: 1 Tubal Ligation: Yes Past Surgical History Section: Yes Cholecystectomy: Yes Gynecologic Surgery: Yes (, HYSTERECTOMY) Hysterectomy: Yes Other Surgery: Yes Social History Alcohol Use: No Tobacco Use: Yes (1 PPD) Substance Use: No Allergies-Medications (Allergen,Severity, Reaction): Coded Allergies: aspirin (Verified Allergy, Severe, Shortness of Breath, 10/15/17) Comments List of her allergies reviewed from the nursing note. Reported Meds & Prescriptions Reported Meds & Active Scripts Active Proair Hfa 8.5 GM Inh (Albuterol Sulfate) 90 Mcg/Act Aer 2 Puff INH Q6H PRN 108 mcg/actuation Albuterol Neb (Albuterol Sulfate) 2.5 Mg/3 Ml Neb 2.5 Mg NEB Q4HR NEB PRN Clonidine (Clonidine HCl) 0.1 Mg Tab 0.1 Mg PO DAILY Diltiazem (Diltiazem HCl) 120 Mg Tab 120 Mg PO BID Nebulizer 1 Mis Mis Ea .ROUTE DIRECTED Reported Singulair (Montelukast Sodium) 10 Mg Tab 10 Mg PO HS Narrative Medication List of her home medications reviewed from the nursing note. Review of Systems Except as stated in HPI: all other systems reviewed are Neg Cardiovascular: Positive: Chest Pain or Discomfort Respiratory: Positive: Shortness of Breath Physical Exam Narrative GENERAL: Awake, alert, moderate distress SKIN: Focused skin assessment warm/dry. HEAD: Atraumatic. Normocephalic. EYES: Pupils equal and round. No scleral icterus. No injection or drainage. ENT: No nasal bleeding or discharge. Mucous membranes pink and moist. NECK: Trachea midline. No JVD. CARDIOVASCULAR: Regular rate and rhythm. No murmur appreciated. RESPIRATORY: Diminished air entry bilaterally with end expiratory wheeze GASTROINTESTINAL: Abdomen soft, non-tender, nondistended. Hepatic and splenic margins not palpable. MUSCULOSKELETAL: No obvious deformities. No clubbing. No cyanosis. No edema. NEUROLOGICAL: Awake and alert. No obvious cranial nerve deficits. Motor grossly within normal limits. Normal speech. PSYCHIATRIC: Appropriate mood and affect; insight and judgment normal. Data Data Last Documented VS Orders Orders Complete Blood Count With Diff (10/15/17 18:13) Basic Metabolic Panel (Bmp) (10/15/17 18:13) B-Type Natriuretic Peptide (10/15/17 18:13) Prothrombin Time / Inr (Pt) (10/15/17 18:13) Troponin I (10/15/17 18:13) Iv Access Insert/Monitor (10/15/17 18:13) Electrocardiogram (10/15/17 18:13) Ecg Monitoring (10/15/17 18:13) Oximetry (10/15/17 18:13) Oxygen Administration (10/15/17 18:13) Chest, Single Ap (10/15/17 18:13) Sodium Chloride 0.9% Flush (Ns Flush) (10/15/17 18:15) Methylprednisolone So Succ Inj (Solumedr (10/15/17 18:15) Albuterol-Ipratropium Neb (Duoneb Neb) (10/15/17 18:15) Nitroglycerin 2% Oint (Nitroglycerin 2% (10/15/17 18:15) Albuterol Neb (Albuterol Neb) (10/15/17 19:00) Labs Laboratory Tests Test 10/15/17 18:10 White Blood Count 5.8 TH/MM3 Red Blood Count 4.94 MIL/MM3 Hemoglobin 14.4 GM/DL Hematocrit 44.2 % Mean Corpuscular Volume 89.5 FL Mean Corpuscular Hemoglobin 29.1 PG Mean Corpuscular Hemoglobin Concent 32.5 % Red Cell Distribution Width 14.0 % Platelet Count 263 TH/MM3 Mean Platelet Volume 8.3 FL Neutrophils (%) (Auto) 62.1 % Lymphocytes (%) (Auto) 24.7 % Monocytes (%) (Auto) 10.9 % Eosinophils (%) (Auto) 1.8 % Basophils (%) (Auto) 0.5 % Neutrophils # (Auto) 3.7 TH/MM3 Lymphocytes # (Auto) 1.4 TH/MM3 Monocytes # (Auto) 0.6 TH/MM3 Eosinophils # (Auto) 0.1 TH/MM3 Basophils # (Auto) 0.0 TH/MM3 CBC Comment DIFF FINAL Differential Comment Prothrombin Time 10.3 SEC Prothromb Time International Ratio 0.9 RATIO Blood Urea Nitrogen 10 MG/DL Creatinine 0.67 MG/DL Random Glucose 102 MG/DL Calcium Level 8.5 MG/DL Sodium Level 138 MEQ/L Potassium Level 3.5 MEQ/L Chloride Level 105 MEQ/L Carbon Dioxide Level 27.3 MEQ/L Anion Gap 6 MEQ/L Estimat Glomerular Filtration Rate 93 ML/MIN Troponin I LESS THAN 0.02 NG/ML B-Type Natriuretic Peptide 27 PG/ML MDM Medical Decision Making Medical Screen Exam Complete: Yes Emergency Medical Condition: Yes Medical Record Reviewed: Yes Interpretation(s) Twelve-lead EKG was reviewed by me. Normal sinus rhythm, normal axis, nonspecific ST-T wave changes. Heart rate of 97 bpm. Differential Diagnosis Hypertensive urgency,/pulmonary edema, COPD exacerbation Narrative Course 7:14 PM patient was given immediately 3 duo nebs and 2 inch Nitropaste. Her blood pressure has come down and she subjectively says she feels better. She still has some end expiratory wheeze and 2 more breathing treatments at given. Patient will be signed over to the oncoming ER physician. 7:18 PM I just had a discussion with the patient regarding the reason to stay in the hospital for at least observation given her uncontrolled hypertension and chest pain along with the shortness of breath that she came in. However patient said she has to go home since yesterday care of her child since her goes to work. Patient understands risk of leaving. She will sign AGAINST MEDICAL ADVICE. She is in full capacity to make these decisions for herself. Procedures EKG Prior to Arrival: No Diagnosis Primary Impression: Hypertensive urgency Additional Impressions: COPD exacerbation Chest pain Qualified Codes: R07.9 - Chest pain, unspecified Respiratory distress Disposition: 07 AGAINST MEDICAL ADVICE Condition: Serious Mike Medeiros MD Oct 15, 2017 19:00
[2017-10-15] MEDS: RESP: ALBUTEROL 2.5 MG/3 ML NEB (SCH) INH ×2 (19:08→19:18)
[2017-10-15 19:21] VITALS: BP 158/94; PULSE 102; RESP 22; O2SAT 99
--- NOTE | 2017-10-16 19:45 | EKG ---
Date Performed: 10/15/2017 Time Performed: 18:24:18 PTAGE: 52 years EKG: Sinus rhythm Since previous tracing, no significant change noted NORMAL ECG PREVIOUS TRACING : 09/08/2017 19.20 DOCTOR: Liliya Peña Interpretating Date/Time 10/16/2017 19:43:47
== END 2017-10-15 19:34 | disposition left against medical advice (07) ==
LOC: PHED 18:07
DX: I16.0 Hypertensive urgency (principal); J44.1 Chronic obstructive pulmonary disease with (acute) exacerbation; R07.9 Chest pain, unspecified; R06.03 Acute respiratory distress; F32.9 Major depressive disorder, single episode, unspecified; F17.210 Nicotine dependence, cigarettes, uncomplicated; Z88.8 Allergy status to other drugs, medicaments and biological substances; Z79.899 Other long term (current) drug therapy
CPT/HCPCS: 71010; 80048; 83880; 84484; 85025; 85610; 93005; 94640; 94664; 96374; 99285; J2930; J7613

== ENCOUNTER 2017-11-22 22:13 | Emergency (ER) | payer MEDICAID ==
[~2017-11-22 22:13] MED LIST changes: -BENZ100 PO; -LEVA750T9 PO; -MEDR4PAK PO; +MONT10TA2 PO
[2017-11-22 22:43] VITALS: BP 185/109; PULSE 112; RESP 20; TEMP 98.5; O2SAT 95
[2017-11-22 23:04] LABS: BILIRUBIN, URINE NEG (NEG); BLOOD, URINE NEG (NEG); GLUCOSE,URINE NEG (NEG); KETONE, URINE NEG (NEG); NITRITE,URINE NEG (NEG); PH, URINE 6.5 (5.0-8.5); URINE LEUKOCYTE ESTERASE NEG (NEG)
[2017-11-22 23:12] LABS: URINE COLOR YELLOW (YELLW/STRAW)
[2017-11-22 23:13] LABS: RBC, URINE 0-2 /hpf (0-3); SQUAMOUS EPITHELIAL CELL URINE 0-5 /hpf (0-5); WBC, URINE 0-2 /hpf (0-5)
== END 2017-11-23 00:17 | disposition left against medical advice (07) ==
LOC: PHED 22:13
DX: R10.9 Unspecified abdominal pain (principal)
CPT/HCPCS: 81001; 99281

== ENCOUNTER → 2018-03-05 | Outpatient (CLI) | payer MEDICAID ==
--- NOTE | 2018-03-07 10:55 | RSPPFT ---
DATE OF PROCEDURE: 03/05/18 COMMENTS: VOLUMES DYNAMIC: FVC mildly reduced; FEV1 severely reduced. STATIC: TLC normal; FRC mildly increased; RV moderately increased. FLOWS: FEV1% and FEF 25-75 severely reduced. DIFFUSION: Moderately reduced. FLOW VOLUME LOOP: Pattern of variable intrathoracic airways obstruction. IMPRESSION: Severe obstructive ventilatory defect with hyperinflation and reduction in diffusion consistent with emphysema. Minimal change post-bronchodilator although this should not preclude a trial of therapy if clinically indicated.
== END ==
LOC: PHRSP 07:28
PROVIDERS: ATTEND Family Medicine
DX: J45.909 Unspecified asthma, uncomplicated (principal)
CPT/HCPCS: 94060; 94726; 94729